=== PATIENT | male | born 1980 | race Caucasian/White ===

== ENCOUNTER 2021-01-13 07:53 | Emergency (ER) | payer BC, OTHER ==
[2021-01-13 08:14] VITALS: BP 141/93; PULSE 67; O2SAT 97
--- NOTE | 2021-01-13 08:28 | ERPHSYRPT ---
- History of Present Illness Time Seen by Provider: 01/13/21 08:05 Source: patient Exam Limitations: no limitations Patient Subjective Stated Complaint: back pain Triage Nursing Assessment: Patient ambulated back to ED and transferred self to bed. Patient A+O x3. Patient's skin pink, warm and dry. Patient complains of mid lower back pain/right side pain that radiates down right leg. Patient states he slept on a broken down couch on Saturday night and woke up saturday morning in pain. Patient states pain is constant aching pain 4/10 with intermittent sharp pain 10/10 at times. no visible injuries or bruising noted. Physician History: This is a 41-year-old white male who does not have a primary care physician and presents with 2-day history of worsening back pain. The pain is radiating down his right buttock and upper leg. He did not suffer any acute traumatic injury. He has had no history of back surgery. He drove himself today into the emergency department. Patient denies chest pain. He does not have any urinary or bowel incontinence. He does not feel numbness in his feet. Timing/Duration: day(s) (2) Method of Injury: other (No injury) Quality: radiating, sharp Back Pain Location: paraspinous muscles Back Pain Radiation: buttocks, upper legs (Posteriorly) Severity of Pain-Max: moderate Severity of Pain-Current: mild (Mild to moderate) Modifying Factors: Improves With: movement Associated Symptoms: lower back pain, muscle spasms, No urinary incontinence, No loss of bowel control, No problems urinating, No numbness in legs/feet Previous symptoms: same symptoms as today (Occasionally) Allergies/Adverse Reactions: No Known Drug Allergies Allergy (Unverified 01/13/21 07:59) Hx Influenza Vaccination/Date Given: No Hx Pneumococcal Vaccination/Date Given: No Immunizations Up to Date: Yes Travel Risk - International Travel Have you traveled outside of the country in past 3 weeks: No - Coronavirus Screening Are you exhibiting any of the following symptoms?: No Close contact with a COVID-19 positive Pt in past 14-21 Days: No - Vaccine Status Have you recieved a Covid-19 vaccination: Yes [employer]: [employer] - Vaccination Dates Date of 2cond Vaccination (if applicable): November 2020 - Review of Systems Constitutional: No Symptoms Eyes: No Symptoms Ears, Nose, & Throat: No Symptoms Respiratory: No Symptoms Cardiac: No Symptoms Abdominal/Gastrointestinal: No Symptoms Genitourinary Symptoms: No Symptoms Musculoskeletal: Back Pain Skin: No Symptoms Neurological: No Symptoms Psychological: No Symptoms Endocrine: No Symptoms Hematologic/Lymphatic: No Symptoms Immunological/Allergic: No Symptoms All Other Systems: Reviewed and Negative - Past Medical History Pertinent Past Medical History: No Neurological History: No Pertinent History ENT History: No Pertinent History Cardiac History: No Pertinent History Respiratory History: No Pertinent History Endocrine Medical History: No Pertinent History Musculoskeletal History: No Pertinent History GI Medical History: No Pertinent History History: No Pertinent History Psycho-Social History: No Pertinent History Male Reproductive Disorders: No Pertinent History - Past Surgical History Past Surgical History: No Neuro Surgical History: No Pertinent History Cardiac: No Pertinent History Respiratory: No Pertinent History Gastrointestinal: No Pertinent History Genitourinary: No Pertinent History Musculoskeletal: No Pertinent History Male Surgical History: No Pertinent History - Social History Smoking Status: Current every day smoker How long have you smoked: years Exposure to second hand smoke: No Drug Use: marijuana Patient Lives Alone: Yes - Nursing Vital Signs Nursing Vital Signs: Initial Vital Signs Temperature 98.1 F 01/13/21 08:01 Pulse Rate 67 01/13/21 08:01 Respiratory Rate 18 01/13/21 08:01 Blood Pressure 141/93 01/13/21 08:01 O2 Sat by Pulse Oximetry 97 01/13/21 08:01 Pain Scale Pain Intensity 4 - Physical Exam General Appearance: no apparent distress, alert, anxiety Eye Exam: PERRL/EOMI, eyes nml inspection Ears, Nose, Throat Exam: normal ENT inspection, moist mucous membranes Neck Exam: normal inspection, non-tender, supple, full range of motion Respiratory Exam: normal breath sounds, lungs clear, airway intact, No chest tenderness, No respiratory distress Cardiovascular Exam: regular rate/rhythm, normal heart sounds, normal peripheral pulses Gastrointestinal Exam: soft, normal bowel sounds, No tenderness Rectal Exam: not done Back Exam: normal inspection, normal range of motion, muscle spasm, No CVA tenderness, No vertebral tenderness Extremity Exam: normal inspection, normal range of motion, pelvis stable Neurologic Exam: alert, oriented x 3, cooperative, 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 Patient declines. Counseled pt/family regarding: diagnosis, need for follow-up - Departure Departure Disposition: Home Clinical Impression: Low back pain, Sciatica Condition: Stable Critical Care Time: No Additional Instructions: Follow-up with a primary care physician for further management of your back pain issues. Prescriptions: Hydrocodone/APAP 5/325 [Union 5/325 mg] 1 each PO Q8H PRN PRN #8 tablet MDD 3 PRN Reason: Pain Cyclobenzaprine HCl 10 mg [Cyclobenzaprine 10 MG] 10 mg PO TID #10 tablet Prednisone 10 mg [Deltasone 10 mg] 10 mg PO TID #12 tablet
== END 2021-01-13 09:02 | disposition home or self-care (01) ==
LOC: ED 07:53
DX: M54.41 Lumbago with sciatica, right side (principal)
CPT/HCPCS: 99283